=== PATIENT | male | born 1985 | race Caucasian/White ===

== ENCOUNTER 2018-11-24 16:06 | Emergency (ER) | payer OTHER ==
[2018-11-24] MEDS ORDERED: cephALEXin 250 MG CAPSULE PO STA (18:00)
--- NOTE | 2018-11-24 18:01 | ED Physician Documentation ---
PD HPI SKIN - Stated complaint Stated Complaint: LT KNEE RED/OOZE - Chief complaint Chief Complaint: Wound - History obtained from History obtained from: Patient - History of Present Illness Timing - onset: Other (Over the last day or so he is developed a small painful area on the left leg with some surrounding redness. No fevers or chills.) Review of Systems Constitutional: denies: Fever, Chills Cardiac: denies: Chest pain / pressure, Palpitations Respiratory: denies: Dyspnea, Cough PD PAST MEDICAL HISTORY - Present Medications Home Medications: Ambulatory Orders Medication Instructions Recorded Confirmed Cephalexin [Keflex] 500 mg PO Q6H #28 capsule 11/24/18 - Allergies Allergies/Adverse Reactions: Allergies Allergy/AdvReac Type Severity Reaction Status Date / Time No Known Drug Allergies Allergy Verified 11/24/18 16:13 PD ED PE NORMAL - Vitals Vital signs reviewed: Yes - General General: Alert and oriented X 3, No acute distress - Extremities Extremities: Other (There is a slightly red area measuring about 3 cm around on the left distal medial quadriceps consistent with a small area of cellulitis. No fluctuance or abscess. Note made that he has a lot of scrapes on his knees from playing football recently.) - Neuro Neuro: Alert and oriented X 3, Normal speech Results - Vitals Vitals: Vital Signs - 24 hr 11/24/18 16:14 Temperature 36.7 C Heart Rate 79 Respiratory 15 Rate Blood Pressure 168/105 H O2 Saturation 100 Departure - Departure Disposition: 01 Home, Self Care Clinical Impression: Left leg cellulitis Condition: Good Record reviewed to determine appropriate education?: Yes Instructions: Cellulitis Dc Prescriptions: Cephalexin [Keflex] 500 mg PO Q6H #28 capsule Comments: Return if the area gets much larger or if you develop a fever. Follow-up with your doctor on Wednesday for recheck. Your blood pressure was elevated today on check into the emergency department. This does not mean that you have hypertension, it is a common phenomenon to come to the emergency department and have elevated blood pressure. I recommend that you see your primary care physician within the week to have it rechecked when you are feeling better.
[2018-11-24 18:10] VITALS: BP 154/99
== END 2018-11-24 18:13 | disposition home or self-care (01) ==
LOC: ED 16:06
DX: L03.116 Cellulitis of left lower limb (principal); R03.0 Elevated blood-pressure reading, without diagnosis of hypertension
CPT/HCPCS: 99282; 99283; A9270

== ENCOUNTER 2020-07-31 15:15 | Emergency (ER) | payer OTHER ==
--- OUTSIDE RECORDS SUMMARY | 2020-07-31 15:52 | EXTERNAL MEDICAL SUMMARY RPT | Continuity of Care Document ---
:1985 Demographics Phone Unavailable Preferred Language Unknown Marital Status Unknown Protestant Affiliation Unknown Race Unknown Ethnic Group Unknown Author Organization [facility] Address [address] [place] [address] Phone Allergies Encounters Medications Problems Results
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
[2020-07-31] MEDS ORDERED: KETOROLAC 60 MG/2 ML VIAL IM STA (17:09)
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
[2020-07-31 17:27] VITALS: BP 152/88
== END 2020-07-31 17:33 | disposition home or self-care (01) ==
LOC: ED 15:15
DX: S43.101A Unspecified dislocation of right acromioclavicular joint, initial encounter (principal); S43.51XA Sprain of right acromioclavicular joint, initial encounter; V18.0XXA Pedal cycle driver injured in noncollision transport accident in nontraffic accident, initial encounter; Y93.55 Activity, bike riding; Y92.830 Public park as the place of occurrence of the external cause
CPT/HCPCS: 96372; 99283; 99284

== ENCOUNTER 2021-07-22 09:12 | Outpatient (CLI) | payer OTHER ==
--- NOTE | 2021-07-22 15:37 | MRI Report ---
PROCEDURE: Foot LT W/O INDICATIONS: FOOT PAIN TECHNIQUE: Noncontrast sagittal T1 spin echo and T2 fast spin echo with fat saturation, long-axis T1 spin echo a nd T2 fast spin echo with fat saturation, short-axis proton density fast spin echo and T2 fast spin e cho with fat saturation through the forefoot. COMPARISON: None. FINDINGS: Image quality: Excellent. Bones and joints: Fiducial marker is placed over dorsal aspect of fifth toe at the level of fifth MT P joint. Subtle cortical T2 hyperintense area measures 4 mm in size is noted over lateral aspect of f ifth metatarsal head with overlying cortical defect. No marrow edema is seen. No metatarsal stress fr acture. No other area of marrow signal abnormality. Soft tissues: The visualized plantar foot muscles demonstrate normal signal and bulk. Visualized fl exor and extensor tendons appear intact, without tenosynovitis. No soft tissue ganglion cysts or bur chanelle fluid collections. Sagittal images demonstrate no evidence for plantar plate tears. IMPRESSION: 1. Subcortical T2 hyperintense area involving lateral aspect of fifth metatarsal head which correspon ds to patient's reported area of pain. Finding could represent benign subcortical cyst versus bony er osion secondary to inflammatory arthropathy. 2. No other area of abnormal marrow signal. No metatarsal stress fracture. 3. Forefoot tendons and ligaments are grossly intact. Reviewed by: Edmar Martinez MD on 07/22/2021 3:36 PM PDT Approved by: Edmar Martinez MD on 07/22/2021 3:36 PM PDT Station ID: [id number]
== END 2021-07-22 09:13 | disposition home or self-care (01) ==
LOC: DI 09:12
PROVIDERS: ATTEND Student in an Organized Health Care Education/Training Program
DX: M79.672 Pain in left foot (principal)

== ENCOUNTER 2022-01-16 11:14 | Emergency (ER) | payer OTHER ==
[2022-01-16 13:19] VITALS: BP 139/82
[2022-01-16] MEDS ORDERED: KETOROLAC 60 MG/2 ML VIAL IM STA (14:12)
[2022-01-16] MEDS ORDERED: DEXAMETHASONE 10 MG/ML VIAL PO STA (14:12)
[2022-01-16] MEDS ORDERED: CHERRY SYRUP 10 ML UDC PO ONE (14:16)
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
== END 2022-01-16 14:43 | disposition home or self-care (01) ==
LOC: ED 11:14
DX: M62.830 Muscle spasm of back (principal); M54.50 Low back pain, unspecified; G89.29 Other chronic pain
CPT/HCPCS: 96372; 99283; 99284; A9270

== ENCOUNTER 2022-01-28 15:40 | Outpatient (CLI) | payer OTHER ==
--- NOTE | 2022-01-28 16:38 | MRI Report ---
PROCEDURE: LUMBAR SPINE WO INDICATIONS: LUMBAR RADICULOPATHY TECHNIQUE: Noncontrast sagittal T1 spin echo and T2 fast echo, sagittal STIR, axial T1 and T2 fast spin echo thr ough the lumbar spine. In cases with scoliosis, additional coronal T2 fast spin echo may be performe d. COMPARISON: None. FINDINGS: Image quality: Excellent. Alignment and Curvature: There is normal bony alignment. In the absence of plain films or compariso n it is assumed that there are 5 nonrib-bearing lumbar vertebral bodies, and that there is a rudiment todd S1-S2 disc, and that axial imaging was obtained from L1/L2 through S1/S2 Bone Marrow: Marrow is of normal overall signal. No acute vertebral body compression fractures. Spinal Cord: Conus medullaris terminates at the L1-L2 level. Visualized cord demonstrates normal si gnal and size. Paraspinous Soft Tissues: No paravertebral masses. T12-L1: Imaged in sagittal plane only. No canal stenosis or foraminal stenosis. L1-L2: No canal stenosis or foraminal stenosis. L2-L3: No canal stenosis or foraminal stenosis. L3-L4: Mild facet hypertrophy. No canal stenosis or foraminal stenosis. L4-L5: Disc bulge. Mild facet hypertrophy. Mild canal stenosis. No foraminal stenosis. L5-S1: Disc bulge. Facet hypertrophy. Mild canal stenosis. No significant foraminal stenosis. S1-S2: No canal stenosis or foraminal stenosis. IMPRESSION: 1. Please note the numbering system utilized describes 5 nonrib-bearing lumbar vertebral bodies, a ru dimentary S1-S2 disc, and axial imaging from L1/L2 through S1/S2. Careful correlation for correct alvino gical level should be made if surgery is contemplated in the future. 2. Using the numbering system described, there is mild canal stenosis at L4-L5 and L5-S1. 3. Multilevel facet hypertrophy. Reviewed by: Damien Cota MD on 01/28/2022 4:37 PM PST Approved by: Damien Cota MD on 01/28/2022 4:37 PM PST Station ID: [id number]
== END 2022-01-28 15:41 | disposition home or self-care (01) ==
LOC: DI 15:40
PROVIDERS: ATTEND Student in an Organized Health Care Education/Training Program
DX: M51.36 Other intervertebral disc degeneration, lumbar region (principal); M51.37 Other intervertebral disc degeneration, lumbosacral region; M47.816 Spondylosis without myelopathy or radiculopathy, lumbar region; M47.817 Spondylosis without myelopathy or radiculopathy, lumbosacral region; M48.061 Spinal stenosis, lumbar region without neurogenic claudication; M48.07 Spinal stenosis, lumbosacral region

== ENCOUNTER 2023-07-06 09:13 | Outpatient (CLI) | payer OTHER ==
--- NOTE | 2023-07-06 09:46 | CARDIAC PROCEDURE NOTE ---
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 Significant Medical History: LtRoni Vasquez is referred for a treadmill stress echocardiogram for overall risk assessment after experiencing a couple of brief and discrete episodes [place]. There was no associated chest pressure/discomfort/pain, nor lightheadedness and there have been no subsequent episodes. He works out actively most days per week without limitation, without any of the above symptoms or decrement in stamina. Concern for these 2 symptom episodes is likely heightened by his mother having experienced a myocardial infarct in her early 50's, for which she received a stent. He has not undergone any rhythm monitoring due to lack of recurrence of symptoms after the two brief episodes. Cardiac Risk Factors: Positive as above for premature CAD in his mother; he is unaware of his own or his mother's cholesterol status, nor is he aware of other close family members with CAD. He denies personal history of hypertension, diabetes or tobacco smoking, though intermittently uses tobacco "chew". Type of Stress Test: ETT with Echocardiography Procedure: -Exercise Treadmill Test- After signing informed consent, the patient underwent echo imaging at rest and then performed treadmill exercise using a Jeronimo protocol. The patient exercised for 13 minutes 38 seconds and achieved a peak heart rate of 174 (96 percent predicted maximum heart rate for age), and an estimated workload of 14.6 METS. The test was terminated due to fatigue/shortness of breath. Resting heart rate: 71 Peak heart rate: 174 Normal response to exercise. Resting BP: 140/91 Peak BP: 203/69 Hypertensive at rest, but with physiologic increase of systolic BP and decrease in diastolic BP in response to exercise. Room air oxygen saturation varied between 95-97% during exercise. Rhythm during exercise: Sinus rhythm throughout without ectopy. Symptoms: He denied heart flutters or lightheadedness, as well as chest pressure, discomfort or pain. EKG at rest showed normal sinus rhythm with mild right axis deviation (likely normal for age) as well as rSR' pattern in V1, suggesting right ventricular conduction delay; there is minor ST elevation in some leads, likely due to normal variant early repolarization, thus the ST/T pattern is interpretable. Serial EKGs showed horizontal ST depression up to 1 mm at rates >160 in leads V4-V6 that was fully resolved by one minute of Recovery. This would meet diagnostic criteria and support inducible ischemia in the setting of chest discomfort or equivalent anginal symptoms. In Recovery HR decreased rapidly and normally, though stayed modestly elevated, while BP decreased below prior resting levels (at 7:00 HR was 107, BP 138/45). Echo imaging, performed at rest and with stress, will be reported separately. IJulien MD, was present throughout this treadmill stress study and supervised it in its entirety. Summary: 1) Exercise tolerance slightly above average for age and sex, as evidenced by JACQUELIN of -8%. 2) Borderline resting EKG, but with interpretable ST/T pattern. 3) Adequate level of exercise was achieved on this treadmill stress test. 4) Hypertensive systolic and diastolic resting BPs but with normal BP response to exercise. 5) ST depression meeting EKG criteria for ischemia was observed at near-maximal heart rates >160 bpm. 6) Echo image interpretation reveals normal left ventricular size, wall thickness and systolic function, with appropriate hyperdynamic augmentation of all segments with exercise, indicating no evidence of prior infarct or inducible ischemia. No significant valvular abnormality or elevation of estimated pulmonary artery systolic pressure seen on screening study. See separate report for more details. Conclusions and Recommendations: 1) Given the normal hemodynamic response, lack of anginal symptoms and no evidence of stress-associated hypokinesis on echocardiography, the ST depression observed at near maximal exercise, though meeting criteria for ischemia, p robably represents a false positive result. 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 3) He has a blood pressure cuff at home and typically sees readings around 1251 . He should remain active, avoid salt and monitor BP periodically, taking action if resting pressures are greater than the mid 130s or high 80s, more than rarely. 4) He should also have a contemporary fasting lipid panel and if LDL cholesterol is elevated, consider initiation of a moderate dose high-potency contemporary statin, as this is the most effective risk-reducing intervention in a non- smoking patient without diabetes.
== END 2023-07-06 09:14 | disposition home or self-care (01) ==
LOC: DI 09:13
PROVIDERS: ATTEND Preventive Medicine Aerospace Medicine
DX: R00.2 Palpitations (principal); F17.220 Nicotine dependence, chewing tobacco, uncomplicated; Z82.49 Family history of ischemic heart disease and other diseases of the circulatory system
CPT/HCPCS: 93350